=== PATIENT | male | born 1950 | race Caucasian/White ===

== ENCOUNTER 2017-08-28 09:36 | Emergency (ER) | payer MEDICARE ==
[~2017-08-28] VITALS: Ht 177.8 cm; Wt 90.0 kg
[~2017-08-28 09:36] MED LIST: BACT800T5 PO
[2017-08-28 09:38] VITALS: BP 197/107; PULSE 78; RESP 14; TEMP 98.2; O2SAT 99
[2017-08-28] MEDS ORDERED: CEPH-460 PO (09:50)
--- NOTE | 2017-08-28 09:54 | PD ---
HPI Chief Complaint: Eye Problems/Injury Time Seen by Provider: 09:49 Travel History International Travel<30 days: No Contact w/Intl Traveler<30days: No Traveled to known affect area: No History of Present Illness HPI 67-year-old male presents for evaluation of a skin lesion in the right upper eyelid. It first started 2 days ago. He reports mild pain associated with it, worse with palpation. Denies any blurred vision, pain with extraocular range of motion, fevers, chills, drainage. He has no other complaints at this time. PFSH Past Medical History Diminished Hearing: No Glaucoma: Yes Past Surgical History Joint Replacement: Yes (BILATERAL KNEE) Other Surgery: Yes (hemorroids) Social History Alcohol Use: No Tobacco Use: Yes (1-2PPD) Substance Use: No Allergies-Medications (Allergen,Severity, Reaction): Coded Allergies: No Known Allergies (Unverified , 11/03/15) Reported Meds & Prescriptions Reported Meds & Active Scripts Active Keflex (Cephalexin) 500 Mg Cap 500 Mg PO Q8H 7 Days Bactrim DS (Sulfamethoxazole-Trimethoprim DS) 1 Tab Tab 1 Tab PO Q12HR 10 Days Review of Systems General / Constitutional: No: Fever, Chills Eyes: No: Blurred Vision, Drainage, Pain Skin: Positive Other (positive for skin bump on the right upper eyelid) Physical Exam Narrative GENERAL: Well-developed well-nourished male in no acute distress SKIN: Warm and dry. HEAD: Atraumatic. Normocephalic. EYES: Pupils equal and round reactive to light extraocular muscles are intact. There is a hordeolum in the right upper eyelid with mild surrounding erythema. No induration or fluctuance. No scleral icterus. No injection or drainage. ENT: No nasal bleeding or discharge. Mucous membranes pink and moist. NECK: Trachea midline. No JVD. No lymphadenopathy CARDIOVASCULAR: Regular rate and rhythm. No murmur appreciated. RESPIRATORY: No accessory muscle use. Clear to auscultation. Breath sounds equal bilaterally. Data Data Last Documented VS Vital Signs Date Time Temp Pulse Resp B/P (MAP) Pulse Ox O2 Delivery O2 Flow Rate FiO2 08/28/17 10:17 178/84 (115) 08/28/17 09:38 98.2 78 14 99 Orders Orders Ed Discharge Order (08/28/17 10:17) MDM Medical Decision Making Medical Screen Exam Complete: Yes Emergency Medical Condition: Yes Medical Record Reviewed: Yes Differential Diagnosis hordeolum, chalazion, periorbital cellulitis Narrative Course Examination is consistent with hordeolum of the right upper eyelid with mild surrounding cellulitis. His blood pressure in triage was elevated. Upon recheck it is improved however still elevated. The patient reports that he recently got insurance. I recommended that he keep a daily journal of his blood pressure readings for the next week and to establish care with a new primary care physician next week to discuss his blood pressure readings. He is agreeable to this plan. He is stable for discharge. Diagnosis Primary Impression: Hordeolum externum (stye) Additional Instructions: Medication as prescribed. Warm compresses to the affected area several times a day 15 and at a time. As discussed, monitor your blood pressure on a daily basis and keep a journal of these readings. Follow-up next week with a primary care physician. Return for any emergent medical conditions. Med/Other Pt SpecificInfo: Prescription(s) given Scripts Cephalexin (Keflex) 500 Mg Cap 500 MG PO Q8H for Infection for 7 Days, #21 CAP 0 Refills Prov: Dimitrios Copeland MD 08/28/17 Disposition: 01 DISCHARGE HOME Condition: Stable Jonathon Fontanez Aug 28, 2017 09:54
[2017-08-28 10:17] VITALS: BP 178/84
== END 2017-08-28 10:29 | disposition home or self-care (01) ==
LOC: NEPK 09:36
DX: H00.011 Hordeolum externum right upper eyelid (principal); H40.9 Unspecified glaucoma; F17.200 Nicotine dependence, unspecified, uncomplicated
CPT/HCPCS: 99283

== ENCOUNTER 2018-01-01 07:44 | Day surgery (SDC) | payer MEDICARE ==
[~2018-01-01] VITALS: Ht 167.6 cm; Wt 92.4 kg
[2018-01-01] VITALS (13 sets, daily range): BP systolic 130–143; BP diastolic 65–76; PULSE 58–87; RESP 16–18; TEMP 97.9–98.8; O2SAT 95–98
[~2018-01-01 07:44] MED LIST changes: +CEPH-460 PO; +TICAGRELOR 90 MG TAB PO ONE
[2018-01-01] MEDS ORDERED: IOHEXOL 350 MG/ML 100 ML BTL (for Cath Lab) OTHER ONE (07:45)
[2018-01-01 08:24] LABS: BASOPHIL # 0.1 TH/MM3 (0-0.2); BASOPHIL % 0.7 % (0.0-2.0); EOSINOPHIL # 0.1 TH/MM3 (0-0.4); EOSINOPHIL % 0.9 % (0.0-4.0); HEMATOCRIT 43.8 % (39.0-51.0); HEMOGLOBIN 14.9 GM/DL (13.0-17.0); LYMPH % 30.3 % (9.0-44.0); LYMPHOCYTE # 2.2 TH/MM3 (1.0-4.8); MEAN CELL VOLUME 98.9 FL (80.0-100.0); MEAN CORPUSCULAR HEMOGLOBIN 33.7 PG (27.0-34.0); MEAN CORPUSCULAR HGB CONC 34.1 % (32.0-36.0); MEAN PLATELET VOLUME 8.4 FL (7.0-11.0); MONO % 13.8 % (0.0-8.0); NEUT % 54.3 % (16.0-70.0); PLATELET COUNT 215 TH/MM3 (150-450); RED BLOOD COUNT 4.43 MIL/MM3 (4.50-5.90); RED CELL DISTRIBUTION WIDTH 14.7 % (11.6-17.2); WHITE BLOOD COUNT 7.3 TH/MM3 (4.0-11.0)
[2018-01-01] MEDS ORDERED: SYMB80AE INH (08:24)
[2018-01-01] MEDS ORDERED: LISI10TA3 PO (08:24)
[2018-01-01] MEDS ORDERED: AMLO5TAB2 PO (08:24)
[2018-01-01 08:42] LABS: CALCIUM 8.8 MG/DL (8.5-10.1); CREATININE 0.89 MG/DL (0.60-1.30)
[2018-01-01] MEDS ORDERED: NS 1000P @30 MLS/HR (KVO) IV SCH (09:15)
[2018-01-01] MEDS ORDERED: TICAGRELOR 90 MG TAB PO ONE (11:27)
--- NOTE | 2018-01-01 11:42 | CATHPROC ---
[employer] HIS Report Study Information Study Number Admission Scheduled Start Study Start [id number] Jan 01 2018 7:44AM 01/01/2018 Jan 01 2018 10:08AM [facility] Catheterization Admit Source Facility Department Other [facility] - Parts Advisor Physician and Clinical Staff Initial Alfred Davis Dessert Cup Machine Feeder Arcelia Gaona,SHARRON Dessert Cup Machine Feeder Price Jackson,RN Recorder Cisco Schmitt,RT(R) Scrub Radha PalmaRT(R) Procedures Performed Procedure Location (Site) Vessel Name Coronary Angiograms LCA Left Coronary Coronary Angiograms RCA Right Coronary Drug Eluting Inflatio LAD Dist Left Coronary Drug Eluting Inflatio LAD Mid Left Coronary L Heart Cath PTCA LAD Dist Left Coronary PTCA LAD Mid Left Coronary Wire insertion Radial (right) Radial Art. Equipment Time Layup Worker Description Size Mfg Part Number Used/Scraped WIRE, BALANCE MIDDLEWEIGHT [id number] 10:49 [employer] 190CM Used 190CM *[id number] TRANSDUCER, TRUWAVE [id number] 10:11 GARCIA DA SILVA * Used W/STOCKCOCK *[id number] *[id number] 10:11 [employer] BLANKET,WARM AIR CCL * Used *[id number] 10:11 [employer] PACK, CCL CUSTOM * Used *[id number] 10:11 [employer] SUPPORT, ARTERIAL ADULT [id number] *[id number] Used BALLOON, 2.25 X 12MM NC [id number] 11:19 [employer] 12MM Used EUPHORA *[id number] BALLOON, 2.75 X 15MM NC [id number] 11:23 [employer] 15MM Used EUPHORA *[id number] 10:39 [employer] JL 3.5 DXTERITY CATHETER FR 5 Used *[id number] 11:05 [employer] STENT, 2.25 15MM CORA 2.25 15MM [id number] Used [id number] 11:03 [employer] STENT, 2.75 18MM CORA 2.75 18MM Used *[id number] 10:49 [employer]/AVE EBU 3.5 Z2 GUIDE CATHETER FR 6 Used *[id number] 11:07 [employer] 30 CONCEPCION INDEFLATOR Used *[id number] BAND, RADIAL COMPRESSION TR [id number] 11:27 [employer] 24CM Used SHORT 24 *[id number] 10:11 [employer] MEDICAL WIRE, EXCHANGE 260CM 3MMJ 260CM Used *[id number] 10:11 [employer]AM[employer] MANIFOLD, 4 PORT * Used *[id number] 10:11 [employer] OMNIPAQUE, 350 MG, 150ML 150ML [id number] Used SHEATH, FR6 TRANSRADIAL [id number] 10:11 [employer] FR 6 Used SLENDER 10CM *[id number] Equipment Model, Serial, Lot Number and Expiration Data Description Model Number Serial Number Lot Number Expiration Date STENT, 2.25 15MM CORA [id number] 08-20-2019 STENT, 2.75 18MM CORA [id number] 03-05-2019 History: Current Medications Medication Dosage/Unit Route Frequency Last Date/Time Taken NORVASC Imdur LISINOPRIL History: Allergies Allergy Reaction No Known Allergies History: Risk Factors Family History of Hypertension Dyslipidemia Previous KS Previous Heart Failure Premature CAD Yes No Yes No No Prior Valve Prior PCI Prior CABG Surgery No No No Cerebrovascular Peripheral Artery Chronic Lung On Dialysis Diabetes Disease Disease Disease No No No No No History: CV Disease Selection Items Cardiomyopathy History: Stress Tests Stress or Imaging Studies Performed Yes Standard Exercise Stress Test No Stress Echo No Stress Test SPECT Stress Test SPECT Result Stress Test SPECT Ischemia Risk/Extent Yes Positive Intermediate Stress Test CMR No Cardiac CTA Coronary Calcium Score No No History: Other Disease Selection Items HTN History: Other Current Smoker Method Packs a Day Years Used Pack Years Yes Cigarettes 1 25 25 Labs Hgb (g/dl) Hct (%) RBC (MIL/MM3) WBC (l/cumm) Platelets (thousands) 11.60-17.00 35.00-51.00 4.00-5.90 4.00-11.00 150.00-450.00 14.9 43.8 4.4 7.3 215 Glucose (mg/dl) BUN (mg/dl) Creatinine (mg/dl) BUN:Creatinine (1:x) 74.00-106.00 7.00-18.00 0.50-1.30 10.00-20.00 193 11 0.9 12.2 Na (meq/l) K (meq/l) Cl (meq/l) CO2 (mmol/L) Ca (mg/dl) 136.00-145.00 3.50-5.10 98.00-107.00 21.00-32.00 8.50-10.10 137 4.2 103 26 8.7 PT (sec) PTT (sec) INR (PTT:PT) 9.80-11.60 24.30-30.10 0.90-1.10 10 24.4 1 CPK-MB (ng/ML) 0.50-3.60 Not Drawn Medication Medication Total Dose (Bolus/Oral) Medication Total Dosage/Unit 1% XYLOCAINE 5 mL BRILLINTA 180 mg FENTANYL 75 mcg HEPARIN 5500 units RADIAL COCKTAIL 5 mL (Bolus) VERSED 0.5 mg Medications (Bolus/Oral) Medication Time Given Dosage/Unit Administered By Reason VERSED 01/01/2018 10:33:11 AM 0.5 mg Arcelia Gaona 0.5 mg VERSED given in lab by Arcelia Gaona RN in Left Antecubital via Peripheral IV. FENTANYL 01/01/2018 10:33:20 AM 25 mcg Arcelia Gaona 25 mcg FENTANYL given in lab by Arcelia Gaona RN via Peripheral IV. 1% XYLOCAINE 01/01/2018 10:33:25 AM 5 mL Alfred Hagen 5 mL 1% XYLOCAINE given in lab by Alfred Hagen in Right Radial via Subcutaneous. Ntg 200mcg Verapamil 2.5mg Heparin RADIAL COCKTAIL 01/01/2018 10:34:45 AM 5 mL (Bolus) Alfred Hagen 3000U 5 mL (Bolus) RADIAL COCKTAIL given in lab by Alfred Hagen in Right Radial via Radial. Using [S olution Name]. Reason: Ntg 200mcg Verapamil 2.5mg Heparin 3000U. HEPARIN 01/01/2018 10:50:19 AM 5500 units Alfred Hagen 5500 units HEPARIN given in lab by Alfred Hagen in Left Antecubital via Peripheral IV. FENTANYL 01/01/2018 11:16:00 AM 50 mcg Manuel, Price 50 mcg FENTANYL given in lab by Price Jackson RN in Left Antecubital via Peripheral IV. BRILLINTA 01/01/2018 11:34:00 AM 180 mg Manuel, Price 180 mg BRILLINTA given in lab by Manuel, Price, RN in Per mouth via Oral. Medication (Drip) Medication Time Given Dosage/Unit Concentration/Unit Diluent (ml) Solution IV Solutions 01/01/2018 10:09:48 AM 0 mL (IV) 500 NaCl .9 IV Solutions given in lab by Arcelia Gaona, RN in Left Antecubital via Peripheral IV. Pump/Drip [place] w = 20 ml/hr using NaCl .9. Initial Case Assessment Cardiovascular HR Rhythm NIBP Chest Pain 69 Irregular 143/82 0 Edema Present Skin color Skin None Normal Warm Dry Circulatory - Right Pulses Dorsalis Pedis Femoral Radial 2 2 2 Scale (0,1,2,3,4,d) Circulatory - Left Pulses Dorsalis Pedis Femoral Radial 2 Scale (0,1,2,3,4,d) Neurological State Oriented to time-place- Alert Moves all extremities person Respiration - General Respiration Rate SpO2 (%) O2 (lpm) (B/min) 20 96 0 Final Case Assessment Cardiovascular HR Rhythm NIBP Chest Pain 67 Irregular 137/83 0 Edema Present Skin color Skin None Normal Warm Dry Circulatory - Right Pulses Dorsalis Pedis Femoral Radial 2 2 2 Scale (0,1,2,3,4,d) Circulatory - Left Pulses Dorsalis Pedis Femoral Radial 2 Scale (0,1,2,3,4,d) Neurological State Oriented to time-place- Alert Moves all extremities person Respiration - General Respiration Rate SpO2 (%) O2 (lpm) (B/min) 19 96 0 Chronological Log Time Study Chronological Log 10:00:00 Patient arrived via Bed. 10:09:16 Patient Name, D.O.B, / Armband Verified By R.N. 10:09:17 Consent signed by the physician and the patient and verified by the Parts Advisor staff. 10:09:18 Pre-op and post- op instructions given; patient acknowledges understanding of instructions. 10:09:19 Verbal Stimulation=2 Physical Stimulation=2 Airway=2 Respiration=2 TOTAL=8. (0=absent, 1=li mited, 2=present) 10:09:20 Presedation assessment performed by Parts Advisor RN. 10:09:22 Allens test performed on the right radial and ulnar artery. 10:09:33 Patient has been NPO for More than 6Hrs. 10:09:34 Skin Breakdown- none per patient. 10:09:35 Patient Warmer Placed on the Table. 10:09:37 Jonn Prominences Protected 10:09:42 A # 20 IV was noted in the Antecubital (left). Grade = 0 IV Solutions given in lab by Arcelia Gaona RN in Left Antecubital via Peripheral IV. Pump/Dr ip Flow = 20 ml/hr using 10:09:48 NaCl .9. 10:09:49 History and physical on the chart or being dictated. Assessment: Initial Case, HR=69 BPM, Rhythm=Irregular, XBNM=277/82 mmhg, Chest Pain=0, Edema=No ne, Color=Normal, Skin = Warm, Dry Right Pulses: Sky Ped=2, Femoral=2, Radial=2 10:09:50 Left Pulses: Femoral=2 Neurological: State=Alert, Ox3, CHARLES Respiration: Resp=20 B/min, SpO2=96 %, O2=0 lpm Vitals capture started with the following parameters, Patient=Adult, Interval=5 min, Initial Pr yunsma=435 mmHg, 10:10:32 Deflation Rate=5 mmHg, Cuff placed on Left Arm 10:10:46 Reference ECG taken 10:11:11 HR=65 bpm, JKUL=496/82 mmhg, SpO2=96.0 %, Resp=23 B/min, Pain=0, Deidra=10, Hernandez=2 10:14:35 Right Radial and groin(s) prepped with 2% chlorhexidine, and draped after a 3 min. waiting time. 10:16:08 HR=77 bpm, QDLF=200/93 mmhg, SpO2=94.0 %, Resp=16 B/min, Pain=0, Deidra=10, Hernandez=2 10:18:38 MD paged 10:20:29 Pressure channel 1 zeroed. 10:21:48 HR=81 bpm, CKSS=735/87 mmhg, SpO2=95.0 %, Resp=25 B/min, Pain=0, Deidra=10, Hernandez=2 10:22:35 MD responded 10:25:11 MD arrived. 10:26:13 HR=73 bpm, TXKY=308/72 mmhg, SpO2=95.0 %, Resp=14 B/min, Pain=0, Deidra=10, Hernandez=2 10:31:10 HR=78 bpm, NRLQ=497/69 mmhg, SpO2=96.0 %, Resp=14 B/min, Pain=0, Deidra=10, Hernandez=2 Time Out. Correct patient, correct procedure, correct physician, labs, allergies, and equipment verified with electrical laboratory technician 10:32:35 team present. Fire risk assesment completed (see hard stop sheet for coding). Time Out Conc urred by MD and individual staff in procedure. 10:33:11 0.5 mg VERSED given in lab by Arcelia Gaona, RN in Left Antecubital via Peripheral IV. 10:33:20 25 mcg FENTANYL given in lab by Arcelia Gaona, SHARRON via Peripheral IV. 10:33:24 Case Start 10:33:25 5 mL 1% XYLOCAINE given in lab by Alfred Hagen in Right Radial via Subcutaneous. 10:34:12 Access site was Radial Artery. A SHEATH, FR6 TRANSRADIAL SLENDER 10CM FR 6 was advanced into the Fem Art (right) using the Per cutaneous 10:34:43 technique. 5 mL (Bolus) RADIAL COCKTAIL given in lab by Alfred Hagen in Right Radial via Radial. Us ing [Solution Name]. 10:34:45 Reason: Ntg 200mcg Verapamil 2.5mg Heparin 3000U. A JR 4.0 INFINITI CATHETER FR 5 was advanced over a wire. OMNIPAQUE, 350 MG, 150ML 150ML was us ed for 10:35:49 injections. 10:36:13 HR=71 bpm, KEOR=291/65 mmhg, SpO2=90.0 %, Resp=21 B/min, Pain=0, Deidra=10, Hernandez=2 Recorded Pressure: LV, HR=98, Condition=Condition 1 10:36:51 (Left Ventricle) LV 102/1/8 Recorded Pressure: LV, Ao, HR=84, Condition=Condition 1 10:37:19 (Left Ventricle) LV 109/3/8, (Aorta) Ao 98/54/76 10:37:55 The RCA was injected and visualized at various angles. OMNIPAQUE, 350 MG, 150ML 150ML used . After removing the current catheter a JL 3.5 DXTERITY CATHETER FR 5 was advanced over a WIRE, E XCHANGE 260CM 10:39:40 3MMJ 260CM. Recorded Pressure: Ao, HR=63, Condition=Condition 1 10:40:49 (Aorta) Ao 105/54/78 10:41:12 HR=74 bpm, GORY=011/60 mmhg, SpO2=90.0 %, Resp=22 B/min, Pain=0, Deidra=10, Hernandez=2 10:41:15 The LCA was injected and visualized at various angles. OMNIPAQUE, 350 MG, 150ML 150ML used . 10:46:09 HR=78 bpm, QIKK=926/79 mmhg, SpO2=94.0 %, Resp=16 B/min, Pain=0, Deidra=10, Hernandez=2 After removing the current catheter a EBU 3.5 Z2 GUIDE CATHETER FR 6 was advanced over a WIRE, EXCHANGE 10:50:02 260CM 3MMJ 260CM. 10:50:19 5500 units HEPARIN given in lab by Alfred Hagen in Left Antecubital via Peripheral I V. 10:51:12 HR=67 bpm, WCOM=238/81 mmhg, SpO2=92.0 %, Resp=18 B/min, Pain=0, Deidra=10, Hernandez=2 10:52:05 Wire removed 10:56:15 HR=92 bpm, XITT=452/76 mmhg, SpO2=93.0 %, Resp=13 B/min, Pain=0, Deidra=10, Hernandez=2 10:57:32 A WIRE, BALANCE MIDDLEWEIGHT 190CM 190CM was inserted via Radial (right). 10:59:08 Interventional wire has crossed the lesion 11:00:04 Activated Clotting Time Drawn 11:01:10 HR=75 bpm, DNLP=614/88 mmhg, SpO2=93.0 %, Resp=13 B/min, Pain=0, Deidra=10, Hernandez=2 A STENT, 2.25 15MM CORA 2.25 15MM was advanced through a EBU 3.5 Z2 GUIDE CATHETER FR 6 over a WIRE, 11:05:30 BALANCE MIDDLEWEIGHT 190CM 190CM. 11:06:11 HR=64 bpm, CQLT=800/80 mmhg, SpO2=95.0 %, Resp=18 B/min, Pain=0, Deidra=10, Hernandez=2 A STENT, 2.25 15MM CORA 2.25 15MM was deployed using a 30 CONCEPCION INDEFLATOR at 12 atmospheres for 30 seconds 11:07:01 in the LAD Dist. 11:07:26 ACT (Normal Range 90-180) = 319 11:08:00 Delivery device removed A STENT, 2.75 18MM CORA 2.75 18MM was advanced through a EBU 3.5 Z2 GUIDE CATHETER FR 6 over a WIRE, 11:09:14 BALANCE MIDDLEWEIGHT 190CM 190CM. 11:11:08 HR=68 bpm, IVOL=402/89 mmhg, SpO2=94.0 %, Resp=15 B/min, Pain=0, Deidra=10, Hernandez=2 A STENT, 2.75 18MM CORA 2.75 18MM was deployed using a 30 CONCEPCION INDEFLATOR at 14 atmospheres for 30 seconds 11:14:06 in the LAD Mid. 11:14:56 Delivery device removed 11:16:00 50 mcg FENTANYL given in lab by Price Jackson RN in Left Antecubital via Peripheral IV. 11:16:15 Wire removed 11:16:54 HR=68 bpm, ZXVQ=225/85 mmhg, SpO2=95.0 %, Resp=16 B/min, Pain=0, Deidra=10, Hernandez=2 A BALLOON, 2.25 X 12MM NC EUPHORA 12MM was inserted over WIRE, BALANCE MIDDLEWEIGHT 190CM 190CM via 11:20:13 the LAD Dist. A BALLOON, 2.25 X 12MM NC EUPHORA 12MM over a WIRE, BALANCE MIDDLEWEIGHT 190CM 190CM in the LAD Dist 11:20:52 was inflated using a 30 CONCEPCION INDEFLATOR at 18 concepcion for 20 sec. 11:21:16 HR=61 bpm, RPAE=957/85 mmhg, SpO2=93.0 %, Resp=13 B/min, Pain=0, Deidra=10, Hernandez=2 A BALLOON, 2.25 X 12MM NC EUPHORA 12MM over a WIRE, BALANCE MIDDLEWEIGHT 190CM 190CM in the LAD Dist 11:21:43 was inflated using a 30 CONCEPCION INDEFLATOR at 16 concepcion for 10 sec. 11:22:07 Balloon Removed. A BALLOON, 2.75 X 15MM NC EUPHORA 15MM was inserted over WIRE, BALANCE MIDDLEWEIGHT 190CM 190CM via 11:22:46 the LAD Mid. A BALLOON, 2.75 X 15MM NC EUPHORA 15MM over a WIRE, BALANCE MIDDLEWEIGHT 190CM 190CM in the LAD Mid 11:23:31 was inflated using a 30 CONCEPCION INDEFLATOR at 14 concepcion for 10 sec. A BALLOON, 2.75 X 15MM NC EUPHORA 15MM over a WIRE, BALANCE MIDDLEWEIGHT 190CM 190CM in the LAD Mid 11:24:12 was inflated using a 30 CONCEPCION INDEFLATOR at 16 concepcion for 10 sec. A BALLOON, 2.75 X 15MM NC EUPHORA 15MM over a WIRE, BALANCE MIDDLEWEIGHT 190CM 190CM in the LAD Mid 11:24:35 was inflated using a 30 CONCEPCION INDEFLATOR at 16 concepcion for 10 sec. 11:24:51 Balloon Removed. 11:26:07 HR=68 bpm, BJKB=454/80 mmhg, SpO2=94.0 %, Resp=11 B/min, Pain=0, Deidra=10, Hernandez=2 11:26:51 Wire removed 11:27:04 Catheter was removed 11:28:30 Case End (Physician broke scrub) Radial Compression Device Used. 10 mLs of air placed in BAND, RADIAL COMPRESSION TR SHORT 24 24 CM. Affected 11:29:57 hand 95 % O2 saturation. Assessment: Final Case, HR=67 BPM, Rhythm=Irregular, BHNI=227/83 mmhg, Chest Pain=0, Edema=Non e, Color=Normal, Skin = Warm, Dry Right Pulses: Sky Ped=2, Femoral=2, Radial=2 11:31:18 Left Pulses: Femoral=2 Neurological: State=Alert, Ox3, CHARLES Respiration: Resp=19 B/min, SpO2=96 %, O2=0 lpm 11:31:53 HR=69 bpm, BEII=441/83 mmhg, SpO2=95.0 %, Resp=13 B/min, Pain=0, Deidra=10, Hernandez=2 11:32:38 No case complications noted. 11:32:42 Cine recording checked. 11:33:01 Bedside Report will be given. 11:33:04 Implantable Device card placed in patient's chart. 11:33:24 A Left Heart Cath was performed. 11:34:00 180 mg BRILLINTA given in lab by Price Jackson, RN in Per mouth via Oral. 11:36:41 Vitals capture stopped. 11:38:24 Patient moved to stretcher End Study - Contrast Media Used In Study Contrast Total Opened (mL) Total Used (mL) Total Wasted (mL) Omnipaque 300 165 135 End Study - Maximum Contrast Load Max Contrast Load (mL) 513.4 End Study - Radiation Exposure Fluoro Time (minutes) 16.2 End Study - Patient Disposition Complications Transferred To Interventional Outcome No Outpatient Bed successful
[2018-01-01] MEDS ORDERED: SODIUM CHLOR 0.9% 1000 ML INJ 1,000 ML IV SCH (12:17)
[2018-01-01] MEDS ORDERED: MISC INFORMATION XX ONE (12:30)
[2018-01-01] MEDS ORDERED: ACETAMINOPHEN 325 MG TAB PO PRN (12:30)
[2018-01-01] MEDS ORDERED: oxyCODONE/ACETAMINOPHEN 10 MG/325 MG TAB PO PRN (12:30)
[2018-01-01] MEDS ORDERED: oxyCODONE/ACETAMINOPHEN 5 MG/325 MG TAB PO PRN (12:30)
--- NOTE | 2018-01-01 20:11 | EKG ---
Date Performed: 01/01/2018 Time Performed: 08:32:32 PTAGE: 67 years EKG: Atrial fibrillation with frequent multifocal PVCs or aberrant ventricular conduction. Infer ior T wave changes are nonspecific Abnormal ECG NO PREVIOUS TRACING DOCTOR: Luther Aguilar Interpretating Date/Time 01/01/2018 20:11:18
[2018-01-01] MEDS: METOPROLOL TARTRATE 25 MG TAB PO SCH (20:48)
[2018-01-01] MEDS: TICAGRELOR 90 MG TAB PO SCH (20:48)
[2018-01-01] MEDS ORDERED: amLODIPine BESYLATE 5 MG TAB PO SCH (21:00)
[2018-01-01] MEDS ORDERED: ATORVASTATIN 80 MG TAB PO SCH (21:00)
[2018-01-01] MEDS: BUDESONIDE-FORMOTEROL 80/4.5 MCG INHALER INH SCH (22:10)
[2018-01-02] VITALS (14 sets, daily range): BP systolic 129–138; BP diastolic 60–62; PULSE 55–83; RESP 18; TEMP 97.5–98.4; O2SAT 97–98
[2018-01-02 06:17] LABS: AUTOMATED NEUTROPHIL # 4.8 TH/MM3 (1.8-7.7); BASOPHIL # 0.1 TH/MM3 (0-0.2); BASOPHIL % 0.6 % (0.0-2.0); EOSINOPHIL # 0.1 TH/MM3 (0-0.4); EOSINOPHIL % 0.9 % (0.0-4.0); HEMATOCRIT 44.6 % (39.0-51.0); HEMOGLOBIN 15.1 GM/DL (13.0-17.0); LYMPH % 24.8 % (9.0-44.0); MEAN CELL VOLUME 98.1 FL (80.0-100.0); MEAN CORPUSCULAR HEMOGLOBIN 33.3 PG (27.0-34.0); MEAN CORPUSCULAR HGB CONC 33.9 % (32.0-36.0); MEAN PLATELET VOLUME 8.7 FL (7.0-11.0); MONO % 13.9 % (0.0-8.0); MONOCYTE # 1.1 TH/MM3 (0-0.9); NEUT % 59.8 % (16.0-70.0); PLATELET COUNT 192 TH/MM3 (150-450); RED BLOOD COUNT 4.55 MIL/MM3 (4.50-5.90); RED CELL DISTRIBUTION WIDTH 14.3 % (11.6-17.2)
[2018-01-02 06:41] LABS: BICARBONATE 24.5 MEQ/L (21.0-32.0); CALCIUM 8.8 MG/DL (8.5-10.1); CREATININE 0.79 MG/DL (0.60-1.30)
--- NOTE | 2018-01-02 07:40 | MA ---
cc: Alfred Hagen DO DATE: 01/01/2018 PROCEDURES: Left heart catheterization, coronary angiogram, moderate sedation, 60 minutes. [place] drug-eluting stent (2.75 x 18) to the mid LAD, Juan Antonio drug-eluting stent (2.25 x 15) to the distal LAD. PREPROCEDURE DIAGNOSIS: Typical angina on multiple antianginals, frequent ectopy, abnormal stress test (intermediate risk). POSTPROCEDURE DIAGNOSES: Coronary artery disease/unstable angina, status post [place] drug-eluting stent (2.75 x 18) to the mid LAD, [place] drug-eluting stent (2.25 x 15) to the distal LAD, medical management of ramus disease. MEDICATIONS: Versed 0.5 mg, fentanyl 75 mcg, verapamil 2.5 mg, nitro 200 mcg, heparin 9200 units, Brilinta 180 mg. CONTRAST USED: 165 mL FLUOROSCOPY: 16.2 minutes. MODERATE SEDATION: 60 minutes. FRAILTY SCORE: 4 ESTIMATED BLOOD LOSS: 10 mL SYNTAX SCORE: 10 PROCEDURAL SUMMARY: Caesar Alston is a pleasant 67-year-old male who sees my partner, Dr. Seo, in the office and previously underwent stress testing for his chest pain. He was found to have apical infarction with mild ischemia and attempted to treat this medically. As the patient continued to have chest pain as well as frequent ectopy, he was recommended cardiac catheterization. Risks, benefits and alternatives were discussed with him and he consented as such. He was brought to the lab and prepped in the usual sterile fashion. The right radial artery was accessed using modified Seldinger technique and placement of a 5-6 [place] slender sheath. This was easily aspirated and flushed. A JR4 was advanced over a J-wire to the ascending aorta and across the aortic valve for measurement of left ventricular pressure. This was pulled back across the aortic valve showing no significant gradient of aortic stenosis. JR4 was used for selective angiography of the right coronary artery system. This was exchanged out for a JL3.5, which was used for selective angiography of the left coronary artery system. On review of the films, the patient has significant disease in his mid and distal LAD as well as the ostial and mid ramus. Overall, I felt that intervening on the ramus since it was ostial would impose on the LAD and circumflex and so I feel that this should be treated medically as the vessel is relatively diffusely diseased throughout the ostial proximal and mid portions. As the patient had an apical ischemia, I felt that it was reasonable to intervene on the LAD in the mid and distal portion as it covers this portion on stress testing. An EBU 3.5 guide was engaged into the left main. The patient was given heparin as an anticoagulant. A BMW wire was advanced into the distal portion of the LAD. An [place] drug-eluting stent (2.25 x 15) was placed over the distal lesion and inflated. An [place] drug-eluting stent (2.75 x 18) was placed over the mid LAD lesion and inflated. At this point, the patient needed to move his shoulder, as it was relatively uncomfortable and afterwards, it was noted that guide and wire had been removed. The guide was reengaged into the left main and the LAD was rewired meticulously to make sure that I was intraluminal in the stents. A noncompliant balloon (2.25 x 12) was used to post-dilate the distal stent. A noncompliant balloon (2.75 x 15) was used to post-dilate the mid LAD stent. Final angiogram shows two well opposed stents with no perforations or dissections. The wire was removed. The guide was removed. A radial band was placed over the arteriotomy site for hemostasis. The patient was loaded with 180 mg of Brilinta. He left the engineering lab technician cardiovascularly stable. FINDINGS: LEFT MAIN: A large sized vessel with no significant disease. It trifurcates into an LAD, circumflex, and ramus. LAD: Normal-sized vessel with 10-20% disease throughout the proximal portion. Mid portion has an 80% lesion and distal to this, has a 90% lesion. It gives off 2 small diagonals with diffuse 40% disease. RAMUS: Moderate sized vessel with ostial disease of 70% as well as proximal to mid of 70% before bifurcating into an upper and lower branch. Both the upper and lower branches appear to have diffuse disease also. LEFT CIRCUMFLEX: Moderate sized vessel with 20-30% disease throughout the proximal mid portion. Distally, it gives off 2 obtuse marginals with the first one having a diffuse 70% disease and an overall small vessel of 1.5 mm. The second one appears to have 40% disease in the proximal portion. RCA: Normal sized vessel with diffuse 20% disease throughout the proximal mid portion. Distally, it supplies the PDA as well as the posterolateral branch with no significant disease. LVEDP 8. IMPRESSION: 1. Typical angina on multiple antianginals. 2. Frequent ectopy. 3. Abnormal stress test (intermediate risk). 4. Coronary artery disease, status post [place] drug-eluting stent (2.75 x 18) to the mid LAD and [place] drug-eluting stent (2.25 x 15) to the distal LAD. RECOMMENDATIONS: 1. Mr. Alston underwent percutaneous coronary intervention as above and will be recommended aspirin and Brilinta therapy. I did discuss with him that if Brilinta therapy is too expensive on refills, he should call myself or Dr. Seo for placement on Plavix therapy. 2. He will continue on his angiotensin converting enzymes inhibitor therapy. 3. We will add statin therapy to his current regimen. 4. We will attempt to place him on beta diogo therapy, although this will have to be watched with his frequent ectopy. 5. He will be watched overnight and discharged in the morning to followup with Dr. Seo. Thank you for allowing me to see Caesar Alston. If there are questions, please do not hesitate to call. DO NATALIA Prado/ , 11:10 PM , 12:00 AM [place]
[2018-01-02] MEDS: METOPROLOL TARTRATE 25 MG TAB PO SCH (08:03)
[2018-01-02] MEDS: BUDESONIDE-FORMOTEROL 80/4.5 MCG INHALER INH SCH (08:03)
[2018-01-02] MEDS: TICAGRELOR 90 MG TAB PO SCH (08:03)
[2018-01-02] MEDS ORDERED: ASPIRIN 81 MG CHEW TAB PO SCH (09:00)
[2018-01-02] MEDS ORDERED: LISINOPRIL 10 MG TAB PO SCH (09:00)
[2018-01-02 11:15] LABS: BANDS 5 % (0-6); LYMPHOCYTES 22 % (9-44); MONOCYTES 10 % (0-8); MYELOCYTES 2 % (0-0); NEUTROPHIL # MANUAL DIFF 5.4 TH/MM3 (1.8-7.7); POLYS (SEG NEUTROPHILS) 61 % (16-70)
[2018-01-02] MEDS ORDERED: BRIL90TA PO (11:55)
[2018-01-02] MEDS ORDERED: ASPI81 PO (11:55)
[2018-01-02] MEDS ORDERED: ATOR80TA45 PO (11:55)
[2018-01-02] MEDS ORDERED: METO25TA3 PO (11:55)
--- NOTE | 2018-01-02 12:36 | PD.CARD.PN ---
Subjective Subjective Remarks Doing well No complaints Objective Vital Signs / I&O Vital Signs Date Time Temp Pulse Resp B/P (MAP) Pulse Ox O2 Delivery O2 Flow Rate FiO2 01/02/18 12:00 97.8 70 18 129/62 (84) 97 01/02/18 12:00 65 01/02/18 11:00 72 01/02/18 10:00 74 01/02/18 09:00 68 01/02/18 08:00 64 01/02/18 08:00 97.5 72 18 129/60 (83) 98 01/02/18 07:00 62 01/02/18 06:07 83 01/02/18 05:00 71 01/02/18 04:00 72 01/02/18 03:15 98.4 62 18 138/61 (86) 97 01/02/18 03:00 69 01/02/18 02:11 55 01/02/18 01:00 60 01/02/18 00:00 68 01/01/18 23:00 58 01/01/18 22:44 98.2 76 18 130/65 (86) 96 01/01/18 22:00 68 01/01/18 21:00 70 01/01/18 20:39 97.9 71 18 134/66 (88) 96 01/01/18 20:00 72 01/01/18 19:00 78 01/01/18 18:00 76 01/01/18 17:00 74 01/01/18 16:00 98.1 87 18 143/68 (93) 98 01/01/18 16:00 75 01/01/18 15:00 70 01/01/18 14:00 70 I/O 01/01/18 01/01/18 01/01/18 01/02/18 01/02/18 01/02/18 07:00 15:00 23:00 07:00 15:00 23:00 Intake Total 1180 ml 480 ml Output Total 250 ml 475 ml Balance 930 ml 5 ml Intake Oral 680 ml 480 ml IV Total 500 ml Output Urine Total 250 ml 475 ml # Voids 3 2 # Bowel Movements 1 Physical Exam GENERAL: NAD, AAOx3 SKIN: Warm and dry. HEAD: Atraumatic. Normocephalic. EYES: Pupils equal and round. No scleral icterus. No injection or drainage. ENT: No nasal bleeding or discharge. Mucous membranes pink and moist. NECK: Trachea midline. No JVD. CARDIOVASCULAR: Regular rate and rhythm. RESPIRATORY: No accessory muscle use. Clear to auscultation. Breath sounds equal bilaterally. GASTROINTESTINAL: Abdomen soft, non-tender, nondistended. Hepatic and splenic margins not palpable. MUSCULOSKELETAL: Extremities without clubbing, cyanosis, or edema. No obvious deformities. Right radial no hematoma, neurovascularly intact distally NEUROLOGICAL: Awake and alert. No obvious cranial nerve deficits. Motor grossly within normal limits. Five out of 5 muscle strength in the arms and legs. Normal speech. PSYCHIATRIC: Appropriate mood and affect; insight and judgment normal. Laboratory Laboratory Tests Test 01/02/18 04:34 White Blood Count 8.0 TH/MM3 Red Blood Count 4.55 MIL/MM3 Hemoglobin 15.1 GM/DL Hematocrit 44.6 % Mean Corpuscular Volume 98.1 FL Mean Corpuscular Hemoglobin 33.3 PG Mean Corpuscular Hemoglobin Concent 33.9 % Red Cell Distribution Width 14.3 % Platelet Count 192 TH/MM3 Mean Platelet Volume 8.7 FL Neutrophils (%) (Auto) 59.8 % Lymphocytes (%) (Auto) 24.8 % Monocytes (%) (Auto) 13.9 % Eosinophils (%) (Auto) 0.9 % Basophils (%) (Auto) 0.6 % Neutrophils # (Auto) 4.8 TH/MM3 Lymphocytes # (Auto) 2.0 TH/MM3 Monocytes # (Auto) 1.1 TH/MM3 Eosinophils # (Auto) 0.1 TH/MM3 Basophils # (Auto) 0.1 TH/MM3 CBC Comment AUTO DIFF Differential Total Cells Counted 100 Neutrophils % (Manual) 61 % Band Neutrophils % 5 % Lymphocytes % 22 % Monocytes % 10 % Neutrophils # (Manual) 5.4 TH/MM3 Myelocytes 2 % Differential Comment FINAL DIFF MANUAL Platelet Estimate NORMAL Platelet Morphology Comment NORMAL Blood Urea Nitrogen 11 MG/DL Creatinine 0.79 MG/DL Random Glucose 164 MG/DL Calcium Level 8.8 MG/DL Sodium Level 138 MEQ/L Potassium Level 4.0 MEQ/L Chloride Level 104 MEQ/L Carbon Dioxide Level 24.5 MEQ/L Anion Gap 10 MEQ/L Estimat Glomerular Filtration Rate 98 ML/MIN Assessment and Plan Problem List: (1) CAD (coronary artery disease) ICD Codes: I25.10 - Atherosclerotic heart disease of [place] coronary artery without angina pectoris (2) Abnormal stress test ICD Codes: R94.39 - Abnormal result of other cardiovascular function study (3) Unstable angina ICD Codes: I20.0 - Unstable angina Assessment and Plan 1) CAD/[place]/Abnl stress test s/p DEON x2 to LAD ASA/Brilinta/SHIRA-I Add Statin/BB 2) Cardiovascularly stable for discharge 3) Residual Ramus disease Intervention would impede on LM/LAD/LCx, plan to treat medically Alfred Hagen DO Jan 02, 2018 12:36
== END 2018-01-02 12:33 | disposition home or self-care (01) ==
LOC: HDOC 07:44 → HDIC 07:51 → HCIS 13:38 → HDOC 01-02 12:33
PROVIDERS: ATTEND Nuclear Medicine Nuclear Cardiology
DX: I25.110 Atherosclerotic heart disease of native coronary artery with unstable angina pectoris (principal); Z79.01 Long term (current) use of anticoagulants; Z95.1 Presence of aortocoronary bypass graft; R94.31 Abnormal electrocardiogram [ECG] [EKG]
CPT/HCPCS: 80048; 85002; 85007; 85025; 85027; 85610; 85730; 92928; 93005; 93458; 99152; 99153; C1725; C1769; C1874; C1887; C1893; J7030; Q9967